=== PATIENT | male | born 1955 | race Caucasian/White ===

== ENCOUNTER 2017-07-05 03:49 | Emergency (ER) | payer MEDICARE, MEDICAID ==
[~2017-07-05] VITALS: Ht 167.6 cm; Wt 65.8 kg
[~2017-07-05 03:49] MED LIST: KEFLEX 500MG.500 MG PO; LORTAB 500 MG-71 TAB PO
[2017-07-05 04:03] LABS: URINE BILIRUBIN - DIPSTICK NEGATIVE (NEG); URINE BLOOD 1+ (NEG)
[2017-07-05 04:26] LABS: HEMOGLOBIN 16.9 g/dL (14.1-18.0); LYMPH # 0.6 K/mm3 (0.7-4.5); LYMPH % 4.8 % (10-50)
--- OUTSIDE RECORDS SUMMARY | 2017-07-05 04:26 | External Medical Summary Rpt | CCD ---
Author Author , YOMAIRA BURNETTE Address Unknown Phone [email or web address] Care Team Providers Care Peanut Grader Name Role Phone NAA TRO, Unavailable Unavailable NAA TRO CELSA EMA, CELSA Unavailable Unavailable [facility] Unavailable Unavailable INC, [facility] DAWSON NIV, DAWSON Unavailable Unavailable NIV ARTIE GRE, ARTIE GRE Unavailable Unavailable [facility] Unavailable Unavailable SERVICES, [facility] Zamudio, Zamudio Unavailable Unavailable DIANA JOJO, Unavailable Unavailable DIANA JOJO [facility] Unavailable Unavailable GAMING TABLE OPERATOR ST, [facility]available [facility]ICIANS, [facility] Purpose Continuity of Care Document - 10-01-2010 through 2016 Problems Code Diagnosis DOS Provider Status E559 VITAMIN D 11-23-2016 DEFICIENCY [facility] UNSPECIFIED PHYSICIANS E785 HYPERLIPIDE 11-23-2016 NATALYA [facility] UNSPECIFIED PHYSICIANS M1990 UNSPECIFIED 11-23-2016 [facility] OSTEOARTHRI PHYSICIANS TIS UNSPECIFIED SITE R202 PARESTHESIA 11-23-2016 OF SKIN [facility] PHYSICIANS R52 PAIN 11-23-2016 UNSPECIFIED [facility] PH[facility]ICIANS R5381 OTHER 11-23-2016 MALAISE [facility] PHYSICIANS R5383 OTHER 11-23-2016 [facility] Z0000 ENCOUNTER 11-23-2016 GEN ADULT [facility] MED EXAM PHYSICIANS W/O ABNORMAL FIND Z6825 BODY MASS 11-23-2016 INDEX BMI [facility] 25.0-25.9 PHYSICIANS ADULT J0190 ACUTE 02-05-2016 SINUSITIS [facility] UNSPECIFIED PHYSICIANS U50824 PAIN IN 02-05-2016 LEFT WRIST [facility] PHYSICIANS Z1211 ENCOUNTER 02-05-2016 SCREENING [facility] MALIGNANT PHYSICIANS NEOPLASM OF COLON 4779 ALLERGIC 04-07-2015 RHINITIS [facility] CAUSE PHYSICIANS UNSPECIFIED 77236 PAIN IN 04-07-2015 JOINT, [facility] FOREARM PHYSICIANS 97166 UNSPECIFIED 04-07-2015 SLEEP [facility] APNEA PHYSICIANS 2662 OTHER 12-18-2012 B-COMPLEX [facility] DEFICIENCIE PHYSICIANS S 2777 DYSMETABOLI 12-18-2012 C SYNDROME [facility] X PHYSICIANS 490 BRONCHITIS 12-18-2012 NOT [facility] SPECIFIED PHYSICIANS ACUTE OR CHRONIC 7245 UNSPECIFIED 12-18-2012 BACKACHE [facility] PHYSICIANS 462 ACUTE 12-12-2012 [facility] 87280 MIGRAINE 12-19-2011 UNSP W/O [facility] INTRACT W/O PHYSICIANS STATUS MIGRAINOSUS 4739 UNSPECIFIED 12-19-2011 SINUSITIS [facility] PHYSICIANS 2720 PURE 03-23-2011 HYPERCHOLES [facility] TEROLEMIA PHYSICIANS 01666 PRECORDIAL 03-23-2011 PAIN [facility] PHYSICIANS 52339 OTHER 02-15-2011 [facility] V7644 SPECIAL 02-15-2011 [facility]ING [facility] NEOPLASM OF ER PROSTATE 4871 INFLUENZA 10-01-2010 ST WITH OTHER [facility] RESPIRATORY PHYSICIANS MANIFESTATI ONS Allergies, Adverse Reactions, Alerts Type Allergy to substance Adverse Reaction to Substance Substance Reaction Severity NO KNOWN ALLERGIES Unknown Unknown Medications Na ND Rx Da Fi Fi Am Da Di Ph RX Ph St me C No te ll ll ou ys ag ar # ys at rm s nt no ma ic us Or Da si cy ia de te s n re d CE 62 04 0 No PH 75 -0 AL 60 3- Lo EX 29 20 ng IN 48 13 er 8 50 Ac 0 ti MG ve CA PS UL E WI 00 04 0 No ED 05 -0 NI 40 3- Lo SO 01 20 ng NE 82 13 er 0 20 Ac ti MG ve TA BL ET Results Labs Lab Lab Date Result Refere Interp Status Commen Order Detail nces retati t Range on Urinalysis with microscopy (07-05-2017 03:53) Urine CLEAR CLEAR complet appeara 017 CLEAR L ed nce 03:53 determi nation Bacteri 10-25-2 1+ 1+ L O complet a 017 ed detecti 03:53 on in urine sedimen t by Urine 1025-2 NEGATIV NEG complet total 017 E ed bilirub 03:53 NEGATIV in E L detecti on by test Urine 10-25-2 1+ 1+ L NEG complet blood 017 ed detecti 03:53 on Urine 25-2 YELLOW YELLOW complet color 017 YELLOW ed 03:53 L Glucose 25-2 = NEG complet ur 017 NEGATIV ed test 03:53 E strip Urine 25-2 NEGATIV NEG complet ketones 017 E ed 03:53 NEGATIV detecti E L on by mg/dL automat ed hubert Mucus 07-05-2 NEGATIV NEG complet detecti 017 E ed on in 03:53 NEGATIV urine E L sedimen t by lig Mucus 10-25-2 1+ 1+ L NONE complet detecti 017 ed on in 03:53 urine sedimen t by lig Urine 07-05-2 NEGATIV NEG complet nitrite 017 E ed 03:53 NEGATIV detecti E L on by test strip Urine 25-2 = 6.0 5.0-8.5 complet pH 017 ed 03:53 Urine 07-05-2 = NEG complet protein 017 NEGATIV ed 03:53 E mg/dL measure ment by automat ed t Erythro 10-25-2 3-5 3-5 0 complet cytes 017 L ed detecti 03:53 rbc/hpf on in urine sedimen t Urine 25-2 = 1.025 1.005-1 complet specifi 017 .030 ed c 03:53 gravity measure ment Urine 25-2 0.2 0.2 NEG complet urobili 017 L ed nogen 03:53 E.U./dL detecti on by test str Urine 1025-2 3 - 5 O complet leukocy 017 wbc/hpf ed hubert 03:53 count (number /volume ) URINALYSIS/COMPLETE (12-12-2012 01:49) URINE 12-12-2 YELLOW YELLOW complet COLOR 013 ed 01:49 URINE CLEAR CLEAR complet APPEARA 013 ed NCE 01:49 URINE NEGATIV NEG complet GLUCOSE 013 E ed - 01:49 DIPSTIC K URINE 04-03-2 NEGATIV NEG complet BILIRUB 013 E ed IN - 01:49 DIPSTIC K URINE 04-03-2 1+ NEG complet KETONE 013 mg/dL ed 01:49 URINE 04-03-2 1.015 1.005-1 complet SPECIFI 013 UNK .030 ed C 01:49 GRAVITY URINE 04-03-2 TRACE-I NEG complet BLOOD 013 NTACT ed 01:49 URINE 04-03-2 7.5 UNK 5.0-8.5 complet PH 013 ed 01:49 URINE 04-03-2 1+ NEG complet PROTEIN 013 mg/dL ed - 01:49 DIPSTIC K URINE 04-03-2 2.0 NEG complet UROBILI 013 E.U./dL ed NOGEN - 01:49 DIPSTIC K URINE 04-03-2 NEGATIV NEG complet NITRATE 013 E ed - 01:49 DIPSTIC K URINE 04-03-2 NEGATIV NEG complet LEUK 013 E ed ESTERAS 01:49 E URINE -03-2 OCC 0 complet RBC 013 rbc/hpf ed 01:49 URINE 04-03-2 OCC O complet WBC 013 wbc/hpf ed 01:49 URINE 04-03-2 OCC OCC complet SQUAMOU 013 #/hpf ed S CELLS 01:49 STREP SCREEN (RAPID) (12-12-2012 01:36) STREP 04-03-2 NEGATIV complet SCREEN 013 E ed (RAPID) 01:36 Procedures Procedure DOS Code Location Performer Comment RHEUMATOI 33018 [facility] D FACTOR [address] [place] [address] QUALITATI VE HEALTHCAR HEALTHCAR E EDGE E EDGE HETEROPHI 64083 [facility] LE [address] [place] [address] ANTIBODIE S SCREEN HEALTHCAR HEALTHCAR E EDGE E EDGE 25 [address]290 [facility] HYDROXY [address] [place] [address] INCLUDES FRACTIONS HEALTHCAR HEALTHCAR IF E EDGE E EDGE PERFORMED CREATINE 97464 [facility] KINASE [address] [place] [address] TOTAL HEALTHCAR HEALTHCAR E EDGE E EDGE CYANOCOBA 13187 [facility] CRISTO [address] [place] [address] VITAMIN B-12 [facility]ALTH[facility] HEALTH[facility] E ED[facility] E EDGE THERAPEUT 31474 ST Zamudio IC 7 [facility] PROPHYLAC TIC/DX PHYSICIAN INJECTION S SUBQ/IM HEMOGLOBI [address] N 7 [facility] GLYCOSYLA CHIDI A1C HEALTHCAR HEALTHCAR E EDGE E EDGE BLOOD [address] COUNT 7 [facility] COMPLETE AUTO&AUTO HEALTHCAR HEALTHCAR DIFRNTL E EDGE E EDGE WBC COMPREHEN [address] SIVE 7 [facility] METABOLIC PANEL HEALTHCAR HEALTHCAR E EDGE E EDGE INJECTION J1040 ST Zamudio 7 [facility] METHYLPRE DNISOLONE PHYSICIAN ACETATE [place] [address] [place] [address] FOLIC 7 [facility] ACID SERUM [facility] [place] [address] THYROID 7 [facility] STIMULATI NG HEALTHCAR HEALTHCAR [place] [address] TRIIODOTH 6 [facility] MED CTR T3 FREE GAMING TABLE OPERATOR ST GAMING TABLE OPERATOR ST ANNUAL G0439 ST DAWSON WELLNESS 6 [facility] NIV VST; PERSONALI PHYSICIAN ZED PPS S SUBSQT VST COMPREHEN [address] SIVE 6 [facility] METABOLIC [facility] MED CTR PANEL GAMING TABLE OPERATOR ST GAMING TABLE OPERATOR ST BLOOD [address] COUNT 6 [facility] COMPLETE MED CTR MED CTR AUTOMATED GAMING TABLE OPERATOR ST GAMING TABLE OPERATOR ST HEMOGLOBI [address] N 6 [facility] GLYCOSYLA MED CTR MED CTR CHIDI A1C GAMING TABLE OPERATOR ST GAMING TABLE OPERATOR ST CYANOCOBA [address] CRISTO 6 [facility] VITAMIN MED CTR MED CTR B-[address] GAMING TABLE OPERATOR ST [address] HYDROXY 6 [facility] INCLUDES MED CTR MED CTR FRACTIONS GAMING TABLE OPERATOR ST GAMING TABLE [place] [address] FREE 6 [facility] THYROXINE MED CTR MED CTR GAMING TABLE OPERATOR [place] [address] THYROID 6 [facility] STIMULATI MED CTR MED CTR NG GAMING TABLE OPERATOR ST GAMING TABLE OPERATOR ST HORMONE TSH INJECTION J1030 ST ARTIE GRE 3 [facility] METHYLPRE DNISOLONE PHYSICIAN ACETATE S [address] ARTIE GRE IC 3 [facility] PROPHYLAC TIC/DX PHYSICIAN INJECTION S SUBQ/IM INJECTION J1040 ST ARTIE GRE 3 [facility] METHYLPRE DNISOLONE PHYSICIAN ACETATE [place] [address] [place] [address] [facility] STREPTOCO 3 [facility] CCUS INC INC GROUP A URNLS DIP 68195 [facility] STICK/TAB INC INC LET REAGENT AUTO MICROSCOP Y CUL BACT 98013 [facility] XCPT 3 [facility] URINE INC INC BLOOD/STO OL AEROBIC ISOL IAADI 56351 [facility] INFLUENZA 3 [facility] B VIRUS INC INC IAADI 18286 [facility] INFFLUENZ 3 [facility] A A VIRUS INC INC BASIC 15298 [facility] METABOLIC 1 [facility] PANEL CALCIUM MEDICALCE [place] [address] [facility] TRIIODOTH 1 F[facility] YRONINE T3 FREE MEDICALCE MEDICALCE NTER NTER HEPATIC 06538 [facility] FUNCTION 1 [facility] PANEL MEDICALCE MEDICALCE NTER NTER CYANOCOBA 56196 [facility] CRISTO 1 FER[facility] F[facility] VITAMIN B-12 MEDICALCE MEDICALCE NTER NTER PROSTATE G0103 [facility] CANCER 1 [facility] SCREENING ; PSA MEDICALCE MEDICALCE TEST NTER NTER BLOOD 90827 [facility] COUNT 1 [facility] COMPLETE AUTOMATED [place] [address] [facility] THYROID 1 [facility] STIMULATI NG MEDICALCE MEDICAL[place] [address] [facility] FREE 1 [facility] THYROXINE MEDICALCE MEDICALCE NTER NTER IAADIADOO [address]83 ST NAA 1 [facility] STEELE INFLUENZA PHYSICIAN S Encounters Encounter Start End Date Code Location Performer Type Date [facility] ST - OTHER 7 7 [facility] OFFICE [address] [facility] Zamudio OUTPATIEN 7 7 [facility] T VISIT 15 PHYSIC[address] [facility] - OTHER 6 6 [facility] GAMING TABLE OPERATOR ST OFFICE [address]3706 ST ARTIE GRE OUTPATIEN 5 5 [facility] T VISIT 25 PHYSICIAN MINUTES S OFFICE [address] ST ARTIE GRE OUTPATIEN 3 3 [facility] T VISIT 25 PHYSICIAN MINUTES S Emergency IVONNE Steen MD (ER) 3 01:49 3 02:29 [facility] - 3 3 [facility] OUTPATIEN INC T EMERGENCY 77468 [facility] 3 3 [facility] DEPARTMEN INC T VISIT LIMITED/M INOR PROB EMERGENCY 92496 KENDALL STEEN 3 3 EMERGENCY EMA DEPARTMEN SERVICES T VISIT MODERATE SEVERITY OFFICE 07[address] ST ARTIE GRE OUTPATIEN 2 2 [facility] T VISIT 25 PHYSICIAN MINUTES S OFFICE [address] ST DIANA OUTPATIEN 1 1 [facility] JOJO T NEW 30 MINUTES PHYSICIAN S HOSPITAL ST - OTHER 1 1 [facility] JANICECE NTER OFFICE [address] ST NAA OUTPATIEN 1 1 FERCHOROXANNE STEELE T VISIT 25 PHYSICIAN MINUTES S
--- OUTSIDE RECORDS SUMMARY | 2017-07-05 04:26 | External Medical Summary Rpt | CCD ---
Author Author , YOMAIRA BURNETTE Address Unknown Phone [email or web address] Care Team Providers Care Automatic Data Processing Planner Name Role Phone NAA TRO, Unavailable Unavailable NAA TRO CELSA EMA, CELSA Unavailable Unavailable E[facility] Unavailable Unavailable INC, [facility] DAWSON NIV, DAWSON Unavailable Unavailable NIV ARTIE GRE, ARTIE GRE Unavailable Unavailable [facility] Unavailable Unavailable SERVICES, [facility] Zamudio, Zamudio Unavailable Unavailable DIANA JOJO, Unavailable Unavailable DIANA JOJO [facility] Unavailable Unavailable SALES AGENT [employer] [facility], [facility] SALES AGENT [employer] [facility] Un[facility]available [facility] ST [...] MALAISE [facility] PHYSICIANS R5383 OTHER 11-23-2016 [facility] Z0000 ENCOUNTER 11-23-2016 GEN ADULT [facility] MED EXAM PHYSICIANS W/O ABNORMAL FIND Z6825 BODY MASS 11-23-2016 INDEX BMI [facility] 25.0-25.9 PHYSICIANS ADULT J0190 ACUTE 02-05-2016 SINUSITIS [facility] UNSPECIFIED PHYSICIANS H53456 PAIN IN 02-05-2016 LEFT WRIST [facility] PHYSICIANS Z1211 ENCOUNTER 02-05-2016 SCREENING [facility] MALIGNANT PHYSICIANS NEOPLASM OF COLON 4779 ALLERGIC 04-07-2015 RHINITIS [facility] CAUSE PHYSICIANS UNSPECIFIED 91729 PAIN IN 04-07-2015 JOINT, [facility] FOREARM PHYSICIANS 86252 UNSPECIFIED 04-07-2015 SLEEP [facility] APNEA PHYSICIANS 2662 OTHER 12-18-2012 B-COMPLEX [facility] DEFICIENCIE PHYSICIANS S 2777 DYSMETABOLI 12-18-2012 C SYNDROME [facility] X PHYSICIANS 490 BRONCHITIS 12-18-2012 NOT [facility] SPECIFIED PHYSICIANS ACUTE OR CHRONIC 7245 UNSPECIFIED 12-18-2012 BACKACHE [facility] PHYSICIANS 462 ACUTE 12-12-2012 [facility] 58072 MIGRAINE 12-19-2011 UNSP W/O [facility] INTRACT W/O PHYSICIANS STATUS MIGRAINOSUS 4739 UNSPECIFIED 12-19-2011 SINUSITIS [facility] PHYSICIANS 2720 PURE 03-23-2011 HYPERCHOLES [facility] TEROLEMIA PHYSICIANS 98276 PRECORDIAL 03-23-2011 PAIN [facility] PHYSICIANS 30494 OTHER 02-15-2011 [facility] V7644 SPECIAL 02-15-2011 S[facility]ING [facility] NEOPLASM OF ER PROSTATE 4871 INFLUENZA 10-01-2010 ST WITH OTHER [facility] RESPIRATORY PHYSICIANS MANIFESTATI ONS Allergies, Adverse Reactions, [...] ti MG ve CA PS UL E [place] 00 04 0 No ED 05 -0 [...] Procedure DOS Code Location Performer Comment RHEUMATOI 60438 [facility] D FACTOR [address] [place] [address] QUALITATI VE HEALTHCAR HEALTHCAR E EDGE E EDGE HETEROPHI 41527 [facility] LE [address] [place] [address] ANTIBODIE S SCREEN HEALTHCAR HEALTHCAR E EDGE E EDGE 25 86204 [facility] HYDROXY [address] [place] [address] INCLUDES FRACTIONS HEALTHCAR HEALTHCAR IF E EDGE E EDGE PERFORMED CREATINE 53556 [facility] KINASE [address] [place] [address] TOTAL HEALTHCAR HEALTHCAR E EDGE E EDGE CYANOCOBA 40225 [facility] CRISTO [address] [place] [address] VITAMIN B-12 HEALTHCAR HEALTHCAR E EDGE E EDGE THERAPEUT 11493 ST Zamudio IC 7 [facility] PROPHYLAC TIC/DX PHYSICIAN INJECTION S SUBQ/IM HEMOGLOBI [address] N 7 [facility] GLYCOSYLA CHIDI A1C HEALTHCAR HEALTHCAR E EDGE E EDGE BLOOD [address] COUNT 7 [facility] COMPLETE AUTO&AUTO HEALTHCAR HEALTHCAR DIFRNTL E EDGE E EDGE WBC COMPREHEN [address] SIVE 7 [facility] METABOLIC PANEL HEALTHCAR HEALTHCAR E EDGE E EDGE INJECTION J1040 ST Zamudio 7 [facility] METHYLPRE DNISOLONE PHYSICIAN ACETATE S [address] [place] [address] FOLIC 7 [facility] ACID [facility] [place] [address] THYROID 7 [facility] STIMULATI NG HEALTHCAR HEALTHCAR [place] [address] TRIIODOTH 6 [facility] YRONINE MED CTR MED CTR T3 FREE SALES AGENT PE[employer]OL [employer]ICE ST SALES AGENT PEST [employer]OL SERVICE ST ANNUAL G0439 ST [facility] 6 [facility] NIV VST; PERSONALI PHYSICIAN ZED PPS S SUBSQT VST COMPREHEN [address] SIVE 6 [facility] METABOLIC MED CTR MED CTR PANEL SALES AGENT PE[employer]ICE ST SALES AGENT PE[employer] [facility]LO[address] COUNT 6 [facility] COMPLETE MED CTR MED CTR AUTOMATED SALES AGENT PE[employer] ST SALES AGENT PE[employer] [address] HEMOGLOBI [address] N 6 FERCHO [facility] GLYCOSYLA MED CTR MED CTR CHIDI A1C SALES AGENT PEST CONTROL [employer]ICE ST SALES AGENT PE[employer] CYANOCOBA [address] CRISTO 6 [facility] VITAMIN MED CTR MED CTR B-12 SALES AGENT PE[employer]ICE ST SALES AGENT PEST [employer]ICE ST [address] HYDROXY 6 [facility] INCLUDES MED CTR MED CTR FRACTIONS SALES AGENT PE[employer]ICE ST SALES AGENT PEST [employer] [address] FREE 6 [facility] THYROXINE MED CTR MED CTR SALES AGENT PEST CONTROL SERVICE ST SALES [place] [address] THYROID 6 [facility] STIMULATI MED CTR MED CTR NG SALES AGENT PEST CONTROL SERVICE ST SALES AGENT PEST CONTROL SERVICE ST HORMONE TSH INJECTION J1030 ST ARTIE GRE 3 [facility] METHYLPRE DNISOLONE PHYSICIAN ACETATE S [address] ARTIE GRE IC 3 [facility] PROPHYLAC TIC/DX PHYSICIAN INJECTION S SUBQ/IM INJECTION J1040 ST ARTIE GRE 3 [facility] METHYLPRE DNISOLONE PHYSICIAN ACETATE S [address] [place] [address] [facility] RESENDEZ STREPTOCO 3 [facility] CCUS INC INC GROUP A URNLS DIP 54596 [facility] RESENDEZ 3 [facility] STICK/TAB INC INC LET REAGENT AUTO MICROSCOP Y CUL BACT 82557 [facility]DEZ XCPT 3 [facility] URINE INC INC BLOOD/STO OL AEROBIC ISOL IAADI 72502 [facility] RESENDEZ INFLUENZA 3 [facility] B VIRUS INC INC IAADI 05472 D[facility] RESENDEZ INFFLUENZ 3 [facility]OS[facility] A A VIRUS INC INC BASIC 84004 [facility] METABOLIC 1 FERCHO [facility] PANEL CALCIUM MEDICAL[place] [address] [facility] TRIIODOTH 1 [facility] YRONINE T3 FREE MEDICALCE MEDICALCE NTER NTER HEPATIC 09262 [facility] FUNCTION 1 [facility] PANEL MEDICALCE MEDICALCE NTER NTER CYANOCOBA 32642 [facility] CRISTO 1 F[facility] FERCHO VITAMIN B-12 MEDICALCE MEDICALCE NTER NTER PROSTATE G0103 [facility] CANCER 1 [facility] SCREENING ; PSA MEDICALCE MEDICALCE TEST NTER NTER BLOOD 16713 [facility] COUNT 1 [facility] COMPLETE AUTOMATED [place] [address] [facility] THYROID 1 [facility] STIMULATI NG MEDICALCE MEDICAL[place] [address] [facility] FREE 1 [facility] THYROXINE MEDICALCE MEDICALCE NTER NTER IAADIADOO [address]228 ST NAA 1 [facility] STEELE INFLUENZA PHYSICIAN S Encounters Encounter Start End Date Code Location Performer Type Date [facility] ST - OTHER 7 7 [facility] EDGE OFFICE 84428 ST Zamudio OUTPATIEN 7 7 [facility] T VISIT 15 PHYSICIAN MIN[address] [facility] ST - OTHER 6 6 [facility] MED CTR SALES AGENT [employer] [address] OFF[address] ARTIE GRE OUTPATIEN 5 5 [facility] T VISIT 25 PHYSICIAN MINUTES S OFFICE [address] ST ARTIE GRE OUTPATIEN 3 3 [facility] T VISIT 25 PHYSICIAN MINUTES S Emergency IVONNE Steen MD (ER) 3 01:49 3 02:29 [facility] - 3 3 [facility] OUTPATIEN INC T EMERGENCY 33804 [facility] 3 3 [facility] DEPARTMEN INC T VISIT LIMITED/M INOR PROB EMERGENCY 77542 KENDALL STEEN 3 3 EMERGENCY EMA DEPARTMEN SERVICES T VISIT MODERATE SEVERITY OFFICE 32934 ST ARTIE GRE OUTPATIEN 2 2 [facility] T VISIT 25 PHYSICIAN MINUTES S OFFICE [address]504 ST DIANA OUTPATIEN 1 1 [facility] JOJO T NEW 30 MINUTES PHYSICIAN S HOSP[address] ST - OTHER 1 1 [facility] JANICECE NTER OFFICE [address]486 ST NAA OUTPATIEN 1 1 FERCHOROXANNE STEELE T VISIT 25 PHYSICIAN MINUTES S
--- OUTSIDE RECORDS SUMMARY | 2017-07-05 04:27 | External Medical Summary Rpt | CCD ---
Demographics Preferred Language Algerian Marital Status Unknown Episcopalian Affiliation Unknown Race Unknown Ethnic Group Unknown Author Author , YOMAIRA BURNETTE Address Unknown Phone Immunization No patient found.
--- OUTSIDE RECORDS SUMMARY | 2017-07-05 04:27 | External Medical Summary Rpt | CCD ---
Author Author , YOMAIRA BURNETTE Address Unknown Phone [email or web address] Care Team Providers Care Plastics Design Engineer Name Role Phone NAA TRO, Unavailable Unavailable NAA TRO CELSA EMA, CELSA Unavailable Unavailable [facility] Unavailable Unavailable INC, [facility] DAWSON NIV, DAWSON Unavailable Unavailable NIV ARTIE GRE, ARTIE GRE Unavailable Unavailable [facility] Unavailable Unavailable SERVICES, [facility] Zamudio, Zamudio Unavailable Unavailable DIANA JOJO, Unavailable Unavailable DIANA JOJO [facility] Unavailable Unavailable [facility] Purpose Continuity of Care Document - 10-01-2010 through 2016 Problems Code Diagnosis DOS Provider Status E559 VITAMIN D 11-23-2016 ST DEFICIENCY [facility] UNSPECIFIED PHYSICIANS E785 HYPERLIPIDE 11-23-2016 ST NATALYA [facility] UNSPECIFIED PHYSICIANS M1990 UNSPECIFIED 11-23-2016 [facility] OSTEOARTHRI PHYSICIANS TIS UNSPECIFIED SITE R202 PARESTHESIA 11-23-2016 ST OF SKIN [facility] PHYSICIANS R52 PAIN 11-23-2016 ST UNSPECIFIED [facility]ICIANS R5381 OTHER 11-23-2016 ST MALAISE [facility] PH[facility]ICIANS R5383 OTHER 11-23-2016 FATIGUE [facility] Z0000 ENCOUNTER 11-23-2016 GEN ADULT [facility] MED EXAM PHYSICIANS W/O ABNORMAL FIND Z6825 BODY MASS 11-23-2016 INDEX BMI [facility] 25.0-25.9 PHYSICIANS ADULT J0190 ACUTE 02-05-2016 SINUSITIS [facility] UNSPECIFIED PHYSICIANS Z50994 PAIN IN 02-05-2016 LEFT WRIST [facility] PHYSICIANS Z1211 ENCOUNTER 02-05-2016 SCREENING [facility] MALIGNANT PHYSICIANS NEOPLASM OF COLON 4779 ALLERGIC 04-07-2015 RHINITIS [facility] CAUSE PHYSICIANS UNSPECIFIED 64041 PAIN IN 04-07-2015 JOINT, [facility] FOREARM PHYSICIANS 27299 UNSPECIFIED 04-07-2015 SLEEP [facility] APNEA PHYSICIANS 2662 OTHER 12-18-2012 B-COMPLEX [facility] DEFICIENCIE PHYSICIANS S 4777 DYSMETABOLI 12-18-2012 C SYNDROME [facility] X PHYSICIANS 490 BRONCHITIS 12-18-2012 NOT [facility] SPECIFIED PHYSICIANS ACUTE OR CHRONIC 7245 UNSPECIFIED 12-18-2012 BACKACHE [facility] PH[facility]ICIANS 462 ACUTE 12-12-2012 [facility] 49876 MIGRAINE 12-19-2011 UNSP W/O [facility] INTRACT W/O PHYSICIANS STATUS MIGRAINOSUS 4739 UNSPECIFIED 12-19-2011 SINUSITIS [facility] PHYSICIANS 7990 PURE 03-23-2011 HYPERCHOLES [facility] TEROLEMIA PHYSICIANS 30746 PRECORDIAL 03-23-2011 PAIN [facility] 87763 OTHER 02-15-2011 [facility] V7644 SPECIAL 02-15-2011 SCREENING [facility] NEOPLASM OF ER PROSTATE 4871 INFLUENZA 10-01-2010 WITH OTHER [facility] RESPIRATORY PHYSICIANS MANIFESTATI ONS Procedures Procedure [place] [address] [facility] FOLIC 7 [facility] BRANTLEY ACID SERUM [facility]ALTH[facility] [place] [address] [facility] THYROID 7 [facility] BRANTLEY STIMULATI NG HEALTHCAR HEALTHCAR HORMONE E EDGE E EDGE TSH COMPREHEN 17665 [facility] SIVE 7 [facility] BRANTLEY METABOLIC PANEL HEALTHCAR HEALTHCAR E EDGE E EDGE HEMOGLOBI 69294 [facility] N 7 F[facility] BRANTLEY GLYCOSYLA CHIDI A1C HEALTHCAR HEALTHCAR E EDGE E EDGE BLOOD 69351 [facility] COUNT 7 [facility] BRANTLEY COMPLETE AUTO&AUTO HEALTHCAR HEALTHCAR DIFRNTL E EDGE E EDGE WBC INJECTION J1040 Zamudio 7 [facility] METHYLPRE DNISOLONE PHYSICIAN ACETATE S [address] LE 7 [facility] ANTIBODIE S SCREEN HEALTHCAR HEALTHCAR E EDGE E EDGE [address] HYDROXY 7 [facility] INCLUDES FRACTIONS HEALTHCAR HEALTHCAR IF E EDGE E EDGE PERFORMED CREATINE [address] KINASE 7 [facility] TOTAL HEALTHCAR HEALTHCAR E EDGE E EDGE THERAPEUT [address]43 ST Zamudio IC 7 [facility] PROPHYLAC TIC/DX PHYSICIAN INJECTION S SUBQ/IM RHEUMATOI [address] D FACTOR 7 [facility] QUALITATI VE HEALTHCAR HEALTHCAR E EDGE E EDGE CYANOCOBA [address] [facility] 7 [facility] VITAMIN B-12 HEALTHCAR HEALTHCAR E EDGE E EDGE CYANOCOBA [address] [facility] 6 [facility] B-[address] HYDROXY 6 [facility] INCLUDES MED CTR MED CTR FRACTIONS [facility] IF PERFORMED BLOOD [address] COUNT 6 [facility] COMPLETE MED CTR MED CTR AUTOMATED [facility] HEMOGLOBI [address] N 6 [facility] GLYCOSYLA MED CTR MED CTR CHIDI A1C [address] [place] [address] TRIIODOTH 6 [facility] YRONINE MED CTR MED CTR T3 FREE [address] SIVE 6 [facility] METABOLIC [facility] MED CTR PANEL [address] [place] [address] FREE 6 [facility] THYROXINE MED CTR MED CTR [facility] ANNUAL G0439 ST DAWSON WELLNESS 6 [facility] NIV VST; PERSONALI PHYSICIAN [place] [address] THYROID 6 [facility] STIMULATI [facility] MED CTR NG [facility] HORMONE TSH INJECTION J1040 ST ARTIE GRE 3 [facility] METHYLPRE DNISOLONE PHYSICIAN ACETATE S [address] IN[address] ARTIE GRE 3 [facility] METHYLPRE DNISOLONE PHYSICIAN ACETATE S [address] ATRIE GRE IC 3 [facility] PROPHYLAC TIC/DX PHYSICIAN INJECTION S SUBQ/IM CUL BACT 42470 [facility] XCPT [facility] URINE INC INC BLOOD/STO OL AEROBIC ISOL IAADI 04196 [facility] INFLUENZA 3 [facility] B VIRUS INC INC IAADI 13712 [facility] INFFLUENZ 3 [facility] [place] [address] [facility] STREPTOCO 3 [facility] CCUS INC INC GROUP A URNLS DIP 33163 [facility] STICK/TAB INC INC [place] [address] [facility] TRIIODOTH 1 [facility] YRONINE T3 FREE [place] [address] [facility] FREE 1 [facility] THYROXINE [place] [address] [facility] THYROID 1 [facility] STIMULATI NG MEDICALCE MEDICALCE HORMONE NTER NTER TSH PROSTATE G0103 [facility] CANCER 1 [facility] SCREENING ; PSA MEDICALCE MEDICALCE TEST NTER NTER HEPATIC 78804 [facility] FUNCTION 1 [facility] PANEL MEDICALCE MEDICALCE NTER NTER BLOOD 26371 [facility] COUNT 1 [facility] COMPLETE AUTOMATED MEDICALCE MEDICALCE NTER NTER BASIC 33636 [facility] METABOLIC 1 [facility] PANEL CALCIUM MEDICALCE MEDICALCE TOTAL NTER NTER CYANOCOBA 73028 [facility] CRISTO 1 [facility] VITAMIN B-12 MEDICALCE MEDICALCE NTER NTER IAADIADOO 91174 NAA 1 [facility] TRO INFLUENZA PHYSICIAN S Encounters Encounter Start End Date Code Location Performer Type Date OFFICE [address] Zamudio OUTPATIEN 7 7 [facility] T VISIT [address] [facility] - OTHER 7 [address] [facility] [address] - OTHER 6 6 [facility] OFF[address] ARTIE GRE OUTPATIEN 5 5 [facility] T VISIT 25 PHYSICIAN MINUTES S OFFICE [address] [facility] ARTIE GRE OUTPATIEN 3 3 [facility] T VISIT 25 PHYSICIAN MINUTES [facility]OSPITAL [facility] 57680 [facility] 3 3 [facility] DEPARTMEN INC T VISIT LIMITED/M INOR PROB EMERGENCY 74234 [facility] STEEN 3 3 [facility] T VISIT MODERATE SEVERITY OFFICE [address] ST ARTIE GRE OUTPATIEN 2 2 [facility] T VISIT 25 PHYSICIAN MINUTES S OFFICE [address] ST DIANA OUTPATIEN 1 1 [facility] JOJO T NEW 30 MINUTES [facility] - OTHER 1 1 [facility] CISSE NTER OFFICE [address] ST NAA OUTPATIEN 1 1 [facility] STEELE T VISIT 25 PHYSICIAN MINUTES S
--- OUTSIDE RECORDS SUMMARY | 2017-07-05 04:27 | External Medical Summary Rpt | CCD ---
Author Author , YOMAIRA BURNETTE Address Unknown Phone [email or web address] Care Team Providers Care Emotional Support Teacher Name Role Phone NAA TRO, Unavailable Unavailable NAA TRO CELSA EMA, CELSA Unavailable Unavailable [facility] Unavailable Unavailable INC, [facility] DAWSON NIV, DAWSON Unavailable Unavailable NIV ARTIE GRE, ARTIE GRE Unavailable Unavailable [facility] Unavailable Unavailable SERVICES, [facility] Zamudio, Zamudio Unavailable Unavailable DIANA JOJO, Unavailable Unavailable DIANA JOJO [facility] Unavailable Unavailable CLINICAL PSYCHOLOGIST ST, [facility] ST [...] J0190 ACUTE 02-05-2016 SINUSITIS [facility] UNSPECIFIED PHYSICIANS C55158 PAIN IN 02-05-2016 LEFT WRIST [facility] PHYSICIANS Z1211 ENCOUNTER 02-05-2016 SCREENING [facility] MALIGNANT PHYSICIANS NEOPLASM OF COLON 4779 ALLERGIC 04-07-2015 RHINITIS [facility] CAUSE PHYSICIANS UNSPECIFIED 88223 PAIN IN 04-07-2015 JOINT, [facility] FOREARM PHYSICIANS 93843 UNSPECIFIED 04-07-2015 SLEEP [facility] APNEA PHYSICIANS 2662 OTHER 12-18-2012 B-COMPLEX [facility] DEFICIENCIE PHYSICIANS S 7317 DYSMETABOLI 12-18-2012 C SYNDROME [facility] X PHYSICIANS 490 BRONCHITIS 12-18-2012 NOT [facility] SPECIFIED PHYSICIANS ACUTE OR CHRONIC 7245 UNSPECIFIED 12-18-2012 BACKACHE [facility] PHYSICIANS 462 ACUTE 12-12-2012 [facility] 94406 MIGRAINE 12-19-2011 UNSP W/O [facility] INTRACT W/O PHYSICIANS STATUS MIGRAINOSUS 4739 UNSPECIFIED 12-19-2011 SINUSITIS [facility] PHYSICIANS 2690 PURE 03-23-2011 HYPERCHOLES [facility] TEROLEMIA PHYSICIANS 29269 PRECORDIAL 03-23-2011 PAIN [facility] PHYSICIANS 43142 OTHER 02-15-2011 [facility] V7644 SPECIAL 02-15-2011 SCREENING [facility] NEOPLASM OF ER PROSTATE 4871 INFLUENZA 10-01-2010 WITH OTHER YUMA RESPIRATORY PHYSICIANS MANIFESTATI ONS Procedures Procedure [place] [address] [facility] FOLIC 7 [facility] BRANTLEY ACID [facility] [address] [facility] THYROID 7 [facility] BRANTLEY STIMULATI NG HEALTHCAR HEALTHCAR HORMONE E EDGE E EDGE TSH COMPREHEN 31708 [facility] SIVE 7 [facility] BRANTLEY METABOLIC PANEL HEALTHCAR HEALTHCAR E EDGE E EDGE HEMOGLOBI 67107 [facility] N 7 FERCHO BRANTLEY GLYCOSYLA CHIDI A1C HEALTHCAR HEALTHCAR E EDGE E EDGE BLOOD 50900 [facility] COUNT 7 [facility] BRANTLEY COMPLETE AUTO&AUTO HEALTHCAR HEALTHCAR DIFRNTL E EDGE E EDGE WBC INJECTION J1040 Zamudio 7 [facility] METHYLPRE DNISOLONE PHYSICIAN ACETATE S [address] LE 7 [facility] ANTIBODIE S SCREEN HEALTHCAR HEALTHCAR E EDGE E EDGE [address] HYDROXY 7 [facility] INCLUDES FRACTIONS HEALTHCAR HEALTHCAR IF E EDGE E EDGE PERFORMED CREATINE [address] KINASE 7 [facility] TOTAL HEALTHCAR HEALTHCAR E EDGE E EDGE THERAPEUT [address] ST Zamudio IC 7 [facility] PROPHYLAC TIC/DX PHYSICIAN INJECTION S SUBQ/IM RHEUMATOI [address] D FACTOR 7 [facility] QUALITATI VE HEALTHCAR HEALTHCAR E EDGE E EDGE CYANOCOBA [address] CRI[facility] 7 [facility] VITAMIN B-12 HEALTHCAR HEALTHCAR E EDGE E EDGE CYANOCOBA [address] [facility] 6 [facility] VITAMIN [facility] MED CTR B-[address]INICAL PSY[address]OLOGIST [address] HYDROXY 6 [facility] INCLUDES MED CTR MED CTR FRACTIONS CLINICAL PSYCHOLOGIST ST CLINICAL PSYCHOLOGIST ST IF PERFORMED BLOOD [address] COUNT 6 [facility] COMPLETE MED CTR MED CTR AUTOMATED CLINICAL PSYCHOLOGIST ST CLINICAL PSYCHOLOGIST ST HEMOGLOBI [address] N 6 [facility] GLYCOSYLA MED CTR MED CTR CHIDI A1C CLINICAL PSYCHOLOGIST [place] [address] TRIIODOTH 6 F[facility] YRONINE MED CTR MED CTR T3 FREE CLINICAL PSYCHOLOGIST ST CLINICAL PSYCHOLOG[address] COMPREH[address] SIVE 6 [facility] METABOLIC [facility] MED CTR PANEL CLINICAL PSYCHOLOGIST [place] [address] FREE 6 [facility] THYROXINE MED CTR MED CTR CLINICAL PSYCHOLOGIST ST CLINICAL PSYCHOLOGIST ST ANNUAL G0439 ST [facility]LLNESS 6 [facility] NIV VST; PERSONALI PHYSICIAN [place] [address] THYROID 6 [facility] STIMULATI [facility] MED CTR NG CLINICAL PSYCHOLOGIST ST CLINICAL PSYCHOLOGIST ST HORMONE TSH INJECTION J1040 ST ARTIE GRE 3 [facility] METHYLPRE DNISOLONE PHYSICIAN ACETATE S [address] IN[address] ARTIE GRE 3 [facility] METHYLPRE DNISOLONE PHYSICIAN ACETATE S [address] ARTIE GRE IC 3 [facility] PROPHYLAC TIC/DX PHYSICIAN INJECTION S SUBQ/IM CUL BACT 42447 [facility] XCPT 3 [facility] URINE INC INC BLOOD/STO OL AEROBIC ISOL IAADI 45186 [facility] INFLUENZA 3 [facility] B VIRUS INC INC IAADI 40138 [facility] INFFLUENZ 3 [facility] [place] [address] [facility] STREPTOCO 3 [facility] CCUS INC INC GROUP A URNLS DIP 88015 [facility] STICK/TAB INC INC [place] [address] [facility] TRIIODOTH 1 [facility] YRONINE T3 FREE [place] [address] [facility] FREE 1 F[facility] THYROXINE [place] [address] [facility] THYROID 1 [facility] STIMULATI NG MEDICALCE MEDICALCE HORMONE NTER NTER TSH PROSTATE G0103 [facility] CANCER 1 [facility] SCREENING ; PSA MEDICALCE MEDICALCE TEST NTER NTER HEPATIC 24704 [facility] FUNCTION 1 [facility] PANEL MEDICALCE MEDICALCE NTER NTER BLOOD 74141 [facility] COUNT 1 [facility] COMPLETE AUTOMATED MEDICALCE MEDICALCE NTER NTER BASIC 02891 [facility] METABOLIC 1 [facility]CHO [facility] PANEL CALCIUM MEDICALCE MEDICALCE TOTAL NTER NTER CYANOCOBA 81301 [facility] CRISTO 1 [facility] VITAMIN B-12 MEDICALCE MEDICALCE NTER NTER IAADIADOO 75206 NAA 1 [facility] TRO INFLUENZA PHYSICIAN S Encounters Encounter Start End Date Code Location Performer Type Date OFFICE [address] ST Zamudio OUTPATIEN 7 7 [facility] T VISIT [address] - OTHER 7 [address] [facility] [address] - OTHER 6 6 [facility] OFFICE [address] ARTIE GRE OUTPATIEN 5 5 [facility] T VISIT 25 PHYSICIAN MINUTES S OFFICE [address] [facility] ARTIE GRE OUTPATIEN 3 3 [facility] T VISIT 25 PHYSICIAN MINUTES [facility]OSPITAL [facility] 80122 [facility] T VISIT LIMITED/M INOR PROB EMERGENCY 91735 [facility] STEEN 3 3 [facility] T VISIT MODERATE SEVERITY OFFICE [address]12[address] ST ARTIE GRE OUTPATIEN 2 2 [facility] T VISIT 25 PHYSICIAN MINUTES S OFFICE [address] ST DIANA OUTPATIEN 1 1 [facility] JOJO T NEW 30 MINUTES [facility] - OTHER 1 1 [facility] CISSE NTER OFFICE [address] ST NAA OUTPATIEN 1 1 [facility] STEELE T VISIT 25 PHYSICIAN MINUTES S
--- OUTSIDE RECORDS SUMMARY | 2017-07-05 04:27 | External Medical Summary Rpt | CCD ---
Demographics Preferred Language Faroese Marital Status Unknown Restorationism Affiliation Unknown Race Unknown Ethnic Group Unknown Author Author , YOMAIRA BURNETTE Address Unknown Phone Immunization No patient found.
--- NOTE | 2017-07-05 04:49 | Emergency Room Report ---
History of Present Illness Time Seen by 0355 Presenting Problem in Triage Pt arrived:Walked Presenting Problem:PT STATES HE STARTED HAVING PAIN IN CHEST AND BACK, N/V SINCE 9PM LAST NIGHT. 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 N Clinical Suspician of Infection? N Mental Status: 1 - Regular (Normal Baseline) Sepsis Risk:Low Sepsis Risk Have you (or family members/close friends) recently traveled outside the [place]? N If Yes, where/when: Have you had exposure to infectious disease within the past month? N TB? Other? Specify: Source patient, RN notes reviewed, RN/MD Exam Limitations no limitations Comment This is a 62-year-old male patient arriving to the emergency room with abdominal pain, nausea, vomiting, diarrhea since 9 PM last night after eating a hamburger. Patient denies any chest pain, shortness of breath or diaphoresis. By the time of arrival to this department the patient was unable to hold down any solid foods or liquids. Patient denies any recent travel or exposure to sick contacts. Patient denies any blood in the vomitus or diarrhea. ALLERGIES Coded Allergies: No Known Allergies (07/05/17) Home Medications Active Scripts CEPHALEXIN (Keflex 500MG Capsule) 500 MG PO Q8H #21 CAP Prov: 12/12/12 Reported Medications HYDROCODONE 7.5MG/XZLS500TZ (Hydrocodon-Acetaminoph 7.5-500) 1 TAB PO Q6HP History Medical History General Angina: Yes NC: No Hypertension? No Hyperlipidemia? No CHF? No COPD? No Asthma? No CVA? No Seizures? No Diabetes? No GB Disease: No MRSA? No TB? No Cancer? No Immunization Hx DT/Tetanus UNKNOWN Surgical Hx Previous Surgery?Y BACK/FUSION Social History Smoking Hx Smoker: Never Smoker Tobacco: No Type Cigarettes Are you/the child exposed to second-hand smoke: No Alcohol Alcohol: No Review of Systems All Other Systems Reviewed and Negative Gastrointestinal see HPI, abdominal pain, diarrhea, nausea, vomiting Physical Exam Vital Signs Vital Signs Date Time Temp Pulse Resp B/P Pulse O2 O2 Flow FiO2 Ox Delivery Rate 07/05 0520 79 16 146/57 93 07/05 436 20 07/05 436 76 20 112/76 90 07/05 0359 97.3 82 24 130/106 98 General Appearance normal appearance, WD/WN, moderate distress Respiratory Status Yes: trachea midline, chest symmetrical, non tender chest. No: respiratory distress. Lung Sounds bilateral: normal breath sounds, lungs clear. 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 No Comment 0545am-patient reevaluated, appears significantly improved, now able to hold down fluids, and ice chips. His advised that he has a history of chronic low back pain, with steel rods implanted in his lumbar spine. He has hydrocodone at home which takes on an as needed basis for pain. Advised patient to increase his fluid intake, take [id number]-qkwtbed Imodium for diarrhea, and Zofran as needed for nausea/vomiting. If no better to follow-up with PCP within 2-3 days. Results/Orders Laboratory Tests 07/05/17 0420: Sodium 142, Potassium 4.4, Chloride 101, Carbon Dioxide 30, BUN 23 H, Creatinine 1.4 H, Estimated Creat Clear 51, Estimated GFR (MDRD) 51, Glucose 136 H, Calcium 10.0, Total Bilirubin 0.7, AST 23, ALT 44, Alkaline Phosphatase 111, Total Protein 9.5 H, Albumin 4.6, Globulin 4.9 H, Albumin/Globulin Ratio 0.9 L, Amylase 106, Lipase 202, WBC 12.3 H, RBC 5.85, Hgb 16.9, Hct 52.3 H, MCV 89.3, RDW 13.0, Plt Count 279, MPV 7.8, Gran % 89.6 H, Gran # 11.0 H, Total Counted 100, Lymphocytes % 4.8 L, Monocytes % 4.3, Eosinophils % 1.1, Basophils % 0.2, Neutrophils 87 H, Lymphocytes (Manual) 12, Lymphocytes # 0.6 L, Monocytes (Manual) 1 L, Monocytes # 0.5, Eosinophils # 0.1, Basophils # 0.0, Platelet Estimate NORMAL, Anisocytosis 1+, PUBS MCHC 32.3, MCH 28.8, Alcohols 0 07/05/17 0353: Urine Color YELLOW, Urine Appearance CLEAR, Urine pH 6.0, Ur Specific [place] 1.025, Urine Protein NEGATIVE, Urine Ketones NEGATIVE, Urine Blood 1+ H, Urine Nitrate NEGATIVE, Urine Bilirubin NEGATIVE, Urine Urobilinogen 0.2, Ur Leukocyte Esterase NEGATIVE, Urine RBC 3-5, Urine WBC 3-5, Urine Bacteria 1+, Urine Mucus 1+, Urine Glucose NEGATIVE Current Medication Orders Sig/Maria Esther Start time Last Medication Dose Route Stop Time Status Admin Diphenoxylate HCl/ 5 MG ONCE ONE 07/05 600 AC Atropine PO 07/05 06 Loperamide HCl 4 MG ONCE ONE 07/05 600 AC PO 07/05 06 Diphenoxylate HCl/ 0 .STK-MED ONE 07/05 0554 DC Atropine PO Loperamide HCl 0 .STK-MED ONE 07/05 0553 DC PO Iopamidol 75 ML ONCE ONE 07/05 530 UNV 07/05 IV 07/05 0531 0531 Sodium Chloride 10 ML ONCE ONE 07/05 530 UNV 07/05 IV 07/05 0531 0531 Sodium Chloride 10 ML ONCE ONE 07/05 0530 UNV 07/05 IV 07/05 0531 0531 Ceftriaxone Sodium 1 GM ONCE ONE 07/05 0515 CAN Sodium Chloride 50 ML IV 07/05 0544 Sodium Chloride 1,000 ML .Q1H1M 07/05 0515 AC 07/05 IV 07/05 0615 0513 Sodium Chloride 10 ML PRN PRN 07/05 0515 AC IV 07/06 0504 Ketorolac 30 MG ONCE ONE 07/05 430 DC 07/05 Tromethamine IV 07/05 431 0436 Ondansetron HCl 4 MG ONCE ONE 07/05 430 DC 07/05 IV 07/05 043 0434 Sodium Chloride 1,000 ML .Q1H1M 07/05 043 DC 07/05 IV 07/05 0530 0434 Sodium Chloride 10 ML PRN PRN 07/05 430 AC IV 07/06 419 Ketorolac 0 .STK-MED ONE 07/05 423 DC Tromethamine .ROUTE Ondansetron HCl 0 .STK-MED ONE 07/05 423 DC .ROUTE Sodium Chloride 1,000 ML .STK-MED ONE 07/05 422 DC IV Sodium Chloride 10 ML PRN PRN 07/05 400 AC IV 07/06 357 Orders Procedure Date/time Status DIET-NOTHING BY MOUTH 07/[address] ABD & PELVIS W/ CONTRAST 07/05 432 Active DIFFERENTIAL-WBC 07/05 420 Complete DRUG ABUSE SCREEN (10) 07/05 417 Active ALCOHOL 07/[address] ABD/PELVIS REQ 07/05 416 Complete LIPASE 07/05 416 Complete CBC WITH AUTO DIFF 07/05 416 Complete CHEM 12 PROFILE 07/05 416 Complete AMYLASE 07/05 416 Complete ELECTROCARDIOGRAM REQUEST 07/05 408 Active IV SALINE LOCK 07/05 357 Active URINALYSIS/COMPLETE 07/05 357 Complete 12 LEAD EKG-DEANNA (INITIAL) 07/05 UNK Active XRAY/CT/US XRAY/CT/US CT abdomen, pelvis CT interpretation by discussed w/radiologist Time results known: 45 CT Results see virtual radiologist report Departure Departure Time of Disposition 05 Disposition DC Home or Self Care(routine) Clinical Impression Primary Impression: Viral gastroenteritis Secondary Impressions: Abdominal pain Qualifiers: Abdominal location: generalized Qualified Code: R10.84 - Generalized abdominal pain Dehydration Condition STABLE Patient Instructions DI for Viral Gastroenteritis -- Adult Additional Instructions Please take wicf-vbc-[id number] Imodium for your diarrhea, as needed. Please take ODT Zofran, as needed for your nausea/vomiting. Please increase your fluid intake, and follow up with PCP's office in 2-3 days if no better. Discharge Counseling Counseled pt/family regarding diagnosis, test results, medications/RX, home care, follow up needs Comment Please take lwaa-zxm-rsbjmai Imodium for your diarrhea, as needed. Please take ODT Zofran, as needed for your nausea/vomiting. Please increase your fluid intake, and follow up with PCP's office in 2-3 days if no better. Prescriptions Current Visit Scripts Ondansetron (Zofran 4MG Odt) 4 MG PO Q6HP PRN NAUSEA AND VOMITING #20 ODT ED Critical Care Critical Care No at 0585
--- NOTE | 2017-07-05 04:49 | Emergency Room Report ---
History of Present Illness Time Seen by [id number] Presenting Problem in Triage Pt arrived:Walked Presenting Problem:PT STATES HE STARTED HAVING PAIN IN CHEST AND BACK, N/V SINCE 9PM LAST NIGHT. 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 N Clinical Suspician of Infection? N Mental Status: 1 - Regular (Normal Baseline) Sepsis Risk:Low Sepsis Risk Have you (or family members/close friends) recently traveled outside the [place]? N If Yes, where/when: Have you had exposure to infectious disease within the past month? N TB? Other? Specify: Source patient, RN notes reviewed, RN/MD Exam Limitations no limitations Comment This is a 62-year-old male patient arriving to the emergency room with abdominal pain, nausea, vomiting, diarrhea since 9 PM last night after eating a hamburger. Patient denies any chest pain, shortness of breath or diaphoresis. By the time of arrival to this department the patient was unable to hold down any solid foods or liquids. Patient denies any recent travel or exposure to sick contacts. Patient denies any blood in the vomitus or diarrhea. ALLERGIES Coded Allergies: No Known Allergies (07/05/17) Home Medications Active Scripts CEPHALEXIN (Keflex 500MG Capsule) 500 MG PO Q8H #21 CAP Prov: 12/12/12 Reported Medications HYDROCODONE 7.5MG/[id number] (Hydrocodon-Acetaminoph 7.5-500) 1 TAB PO Q6HP History Medical History General Angina: Yes CT: No Hypertension? No Hyperlipidemia? No CHF? No COPD? No Asthma? No CVA? No Seizures? No Diabetes? No GB Disease: No MRSA? No TB? No Cancer? No Immunization Hx DT/Tetanus UNKNOWN Surgical Hx Previous Surgery?Y BACK/FUSION Social History Smoking Hx Smoker: Never Smoker Tobacco: No Type Cigarettes Are you/the child exposed to second-hand smoke: No Alcohol Alcohol: No Review of Systems All Other Systems Reviewed and Negative Gastrointestinal see HPI, abdominal pain, diarrhea, nausea, vomiting Physical Exam Vital Signs Vital Signs Date Time Temp Pulse Resp B/P Pulse O2 O2 Flow FiO2 Ox Delivery Rate 07/05 0520 79 16 146/57 93 07/05 436 20 07/05 436 76 20 112/76 90 07/05 0359 97.3 82 24 130/106 98 General Appearance normal appearance, WD/WN, moderate distress Respiratory Status Yes: trachea midline, chest symmetrical, non tender chest. No: respiratory distress. Lung Sounds bilateral: normal breath sounds, lungs clear. 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 No Comment 0545am-patient reevaluated, appears significantly improved, now able to hold down fluids, and ice chips. His advised that he has a history of chronic low back pain, with steel rods implanted in his lumbar spine. He has hydrocodone at home which takes on an as needed basis for pain. Advised patient to increase his fluid intake, take [id number] Imodium for diarrhea, and Zofran as needed for nausea/vomiting. If no better to follow-up with PCP within 2-3 days. Results/Orders Laboratory Tests 07/05/17 0420: Sodium 142, Potassium 4.4, Chloride 101, Carbon Dioxide 30, BUN 23 H, Creatinine 1.4 H, Estimated Creat Clear 51, Estimated GFR (MDRD) 51, Glucose 136 H, Calcium 10.0, Total Bilirubin 0.7, AST 23, ALT 44, Alkaline Phosphatase 111, Total Protein 9.5 H, Albumin 4.6, Globulin 4.9 H, Albumin/Globulin Ratio 0.9 L, Amylase 106, Lipase 202, WBC 12.3 H, RBC 5.85, Hgb 16.9, Hct 52.3 H, MCV 89.3, RDW 13.0, Plt Count 279, MPV 7.8, Gran % 89.6 H, Gran # 11.0 H, Total Counted 100, Lymphocytes % 4.8 L, Monocytes % 4.3, Eosinophils % 1.1, Basophils % 0.2, Neutrophils 87 H, Lymphocytes (Manual) 12, Lymphocytes # 0.6 L, Monocytes (Manual) 1 L, Monocytes # 0.5, Eosinophils # 0.1, Basophils # 0.0, Platelet Estimate NORMAL, Anisocytosis 1+, PUBS MCHC 32.3, MCH 28.8, Alcohols 0 07/05/17 0353: Urine Color YELLOW, Urine Appearance CLEAR, Urine pH 6.0, Ur Specific [place] 1.025, Urine Protein NEGATIVE, Urine Ketones NEGATIVE, Urine Blood 1+ H, Urine Nitrate NEGATIVE, Urine Bilirubin NEGATIVE, Urine Urobilinogen 0.2, Ur Leukocyte Esterase NEGATIVE, Urine RBC 3-5, Urine WBC 3-5, Urine Bacteria 1+, Urine Mucus 1+, Urine Glucose NEGATIVE Current Medication Orders Sig/Maria Esther Start time Last Medication Dose Route Stop Time Status Admin Diphenoxylate HCl/ 5 MG ONCE ONE 07/05 600 AC Atropine PO 07/05 06 Loperamide HCl 4 MG ONCE ONE 07/05 600 AC PO 07/05 06 Diphenoxylate HCl/ 0 .STK-MED ONE 07/05 0554 DC Atropine PO Loperamide HCl 0 .STK-MED ONE 07/05 0553 DC PO Iopamidol 75 ML ONCE ONE 07/05 530 UNV 07/05 IV 07/05 0531 0531 Sodium Chloride 10 ML ONCE ONE 07/05 530 UNV 07/05 IV 07/05 0531 0531 Sodium Chloride 10 ML ONCE ONE 07/05 0530 UNV 07/05 IV 07/05 0531 0531 Ceftriaxone Sodium 1 GM ONCE ONE 07/05 0515 CAN Sodium Chloride 50 ML IV 07/05 0544 Sodium Chloride 1,000 ML .Q1H1M 07/05 0515 AC 07/05 IV 07/05 0615 0513 Sodium Chloride 10 ML PRN PRN 07/05 0515 AC IV 07/06 0504 Ketorolac 30 MG ONCE ONE 07/05 430 DC 07/05 Tromethamine IV 07/05 431 0436 Ondansetron HCl 4 MG ONCE ONE 07/05 430 DC 07/05 IV 07/05 043 0434 Sodium Chloride 1,000 ML .Q1H1M 07/05 043 DC 07/05 IV 07/05 0530 0434 Sodium Chloride 10 ML PRN PRN 07/05 430 AC IV 07/06 419 Ketorolac 0 .STK-MED ONE 07/05 423 DC Tromethamine .ROUTE Ondansetron HCl 0 .STK-MED ONE 07/05 423 DC .ROUTE Sodium Chloride 1,000 ML .STK-MED ONE 07/05 422 DC IV Sodium Chloride 10 ML PRN PRN 07/05 400 AC IV 07/06 357 Orders Procedure Date/time Status DIET-NOTHING BY MOUTH 07/[address] ABD & PELVIS W/ CONTRAST 07/05 432 Active DIFFERENTIAL-WBC 07/05 420 Complete DRUG ABUSE SCREEN (10) 07/05 417 Active ALCOHOL 07/[address] ABD/PELVIS REQ 07/05 416 Complete LIPASE 07/05 416 Complete CBC WITH AUTO DIFF 07/05 416 Complete CHEM 12 PROFILE 07/05 416 Complete AMYLASE 07/05 416 Complete ELECTROCARDIOGRAM REQUEST 07/05 408 Active IV SALINE LOCK 07/05 357 Active URINALYSIS/COMPLETE 07/05 357 Complete 12 LEAD EKG-DEANNA (INITIAL) 07/05 UNK Active XRAY/CT/US XRAY/CT/US CT abdomen, pelvis CT interpretation by discussed w/radiologist Time results known: 45 CT Results see virtual radiologist report Departure Departure Time of Disposition 05 Disposition DC Home or Self Care(routine) Clinical Impression Primary Impression: Viral gastroenteritis Secondary Impressions: Abdominal pain Qualifiers: Abdominal location: generalized Qualified Code: R10.84 - Generalized abdominal pain Dehydration Condition STABLE Patient Instructions DI for Viral Gastroenteritis -- Adult Additional Instructions Please take [id number] Imodium for your diarrhea, as needed. Please take ODT Zofran, as needed for your nausea/vomiting. Please increase your fluid intake, and follow up with PCP's office in 2-3 days if no better. Discharge Counseling Counseled pt/family regarding diagnosis, test results, medications/RX, home care, follow up needs Comment Please take [id number] Imodium for your diarrhea, as needed. Please take ODT Zofran, as needed for your nausea/vomiting. Please increase your fluid intake, and follow up with PCP's office in 2-3 days if no better. Prescriptions Current Visit Scripts Ondansetron (Zofran 4MG Odt) 4 MG PO Q6HP PRN NAUSEA AND VOMITING #20 ODT ED Critical Care Critical Care No at 0538
[2017-07-05 05:28] LABS: NEUTROPHILS 87 % (42-76)
[2017-07-05] MEDS ORDERED: ZOFRAN ODT4 MG PO (05:49)
[2017-07-05 06:35] VITALS: BP 123/76
[2017-07-05 07:36] LABS: AMPHETAMINES/METAMPHETAMINES NEGATIVE ng/mL (<1000)
--- NOTE | 2017-07-05 10:26 | RADIOLOGY REPORT PS360 ---
CT ABD PELVIS W/ CONTRAST CLINICAL INDICATION: Abdominal pain with nausea and vomiting ABD PAIN, N/V ORDERING PHYSICIAN: Adolph Stoner MD PATIENT AGE: 62 years COMPARISON: None TECHNIQUE: Axial images obtained with sagittal and coronal reformats. PROCEDURE: Oral Contrast: None IV Contrast: 75 mL [id number].. FINDINGS: Artifact is present from [place] rods within the thoracic lumbar spine. There is severe thoracolumbar scoliosis with an S-shaped curve of the spine convex right in the thoracic region and convex left in the lumbar region. Fluid is present in the distal esophagus. Small hiatal hernia. There are at least 2 isodensity is of the liver both in the left hepatic lobe the largest in the lateral aspect the left hepatic lobe at 2.8 cm. This may be due to hepatic cysts. No biliary dilatation. Spleen, adrenal glands, and pancreas are unremarkable. No hydronephrosis or obstructing ureteral calculus. There are fluid-filled loops of small and large bowel which are nondistended consistent with gastroenteritis or ileus. No intestinal obstruction or free air. No evidence of appendicitis or diverticulitis. IMPRESSION: 1. Extensive thoracolumbar scoliosis. 2. Gastroenteritis/ileus
== END 2017-07-05 06:35 | disposition home or self-care (01) ==
LOC: ER 03:49
PROVIDERS: Emergency Medicine
DX: A08.4 Viral intestinal infection, unspecified (principal); R10.84 Generalized abdominal pain; I20.8 Other forms of angina pectoris; Z79.899 Other long term (current) drug therapy
CPT/HCPCS: J2405; Q9967